=== PATIENT | female | born 1990 | race Caucasian/White ===

== ENCOUNTER 2017-03-06 22:53 | Emergency (ER) | payer OTHER ==
[~2017-03-06] VITALS: Ht 162.6 cm; Wt 51.4 kg
[~2017-03-06 22:53] MED LIST: LEVAQUIN750 MG PO; NAPROSYN375 MG PO
[2017-03-06 23:45] LABS: ADD MIUA? YES; BILIRUBIN NEGATIVE; BLOOD SMALL; COLOR YELLOW ((YELLOW)); GLUCOSE (STRIP) NEGATIVE; KETONES NEGATIVE; LEUKOCYTES MODERATE; NITRITE NEGATIVE; PROTEIN (STRIP) 30; SPECIFIC GRAVITY 1.009 (1.000-1.030); UROBILINOGEN 0.2 MG/DL (0.2-1.0)
[2017-03-06 23:51] LABS: BACTERIA NONE SEEN /HPF; EPITHELIAL CELLS 1+ /HPF; MUCUS NONE SEEN /LPF; RED BLOOD CELLS 20-30 /HPF (0-5); UCUL ADDED? YES; WHITE BLOOD CELLS TNTC /HPF (0-5)
[2017-03-06 23:57] LABS: HEMATOCRIT 37.8 % (36.0-46.0); MCH 29.6 PG (29.0-34.0); MCHC 33.9 G/DL (30.0-36.0); MCV 87.5 FL (83-99); MEAN PLAT.VOLUME 10.2 uM^3 (9.5-12.4); PLATELET COUNT 241 K/uL (156-360); RBC DIS.WIDTH-CV 12.1 % (11.8-14.6); RBC DIS.WIDTH-SD 39.3 % (39-53); RED BLOOD COUNT 4.32 M/uL (3.80-5.20); WHITE BLOOD COUNT 12.2 K/uL (4.1-10.2)
[2017-03-07 00:13] LABS: CHLORIDE 105 mEq/L (99-109); POTASSIUM 3.4 mEq/L (3.7-5.4); SODIUM 139 mEq/L (136-147)
[2017-03-07 00:15] LABS: GLUCOSE 81 mg/dL (70-99)
[2017-03-07 00:16] LABS: ANION GAP 11 MEQ/L (2-14)
[2017-03-07 00:17] LABS: TOTAL BILIRUBIN 0.4 mg/dL (0.0-1.0)
[2017-03-07 00:18] LABS: ALKALINE PHOSPHATASE 62 IU/L (3-129); GFR ESTIMATE (CALCULATED) > 59 mL/min/
[2017-03-07 00:20] LABS: UREA NITROGEN (BUN) 10 mg/dL (9-23)
[2017-03-07 00:29] LABS: QUANTITATIVE HCG < 4.0 MIU/ML
[2017-03-07 04:00] VITALS: BP 88/52
== END 2017-03-07 04:01 | disposition home or self-care (01) ==
LOC: EME 22:53
DX: N30.00 Acute cystitis without hematuria (principal); F17.200 Nicotine dependence, unspecified, uncomplicated
CPT/HCPCS: 80053; 81003; 84702; 85027; 87077; 87086; 99281; 99285; J0696; J2270; J2405; J7030; J7050